=== PATIENT | female | born 1985 | race African-American/Black ===

== ENCOUNTER → 2018-01-30 | Outpatient (CLI) | payer BC ==
--- NOTE | 2018-01-30 14:37 | RAD ---
MRI of the lumbar spine without contrast 01/30/2018 CLINICAL HISTORY: Low back pain with which radiates down both legs for one month. TECHNIQUE: Unenhanced T1-weighted and T2-weighted sagittal and axial and inversion recovery sagittal images of the lumbar spine were obtained. FINDINGS: The alignment of the lumbar vertebrae is within normal limits. The morphology and signal characteristics of all the disks of the lumbar spine are within normal limits. The marrow signal of the visualized bony structures is within normal limits. The conus medullaris is normal morphology, position, and signal characteristics. On the axial images no significant degenerative changes are seen. No focal disc herniation is noted. No area of significant central spinal canal or neural foraminal stenosis is seen. IMPRESSION: Negative study. Electronically signed by: Jalen Tomas MD (01/30/2018 2:34 PM) [id number]
== END | disposition home or self-care (01) ==
LOC: MRI 13:07
PROVIDERS: ATTEND Nurse Practitioner Family
DX: M54.5 Low back pain (principal)
CPT/HCPCS: 72148